=== PATIENT | male | born 1975 | race African-American/Black ===

== ENCOUNTER 2016-08-21 05:59 | Emergency (ER) | payer SELFPAY ==
[~2016-08-21] VITALS: Ht 182.9 cm; Wt 81.6 kg
[2016-08-21 06:11] VITALS: BP 153/88
--- NOTE | 2016-08-21 06:22 | PHYS DOC ---
Past Medical History Past Medical History: No Pertinent History Past Surgical History: No Surgical History Alcohol Use: Rarely Drug Use: Marijuana Adult General Chief Complaint Chief Complaint: SORE THROAT HPI HPI Patient is a 41 year old male who presents with sore throat. The patient reports 3 day history of illness primarily with sore throat, also complains of mild nasal congestion & occasional dry cough. Denies fevers/chills, shortness of breath, vomiting. Previously healthy but has frequent strep pharyngitis. No known exposure to strep but has 4 children. No PCP. Review of Systems Review of Systems Constitutional: Denies fever or chills Eyes: Denies drainage HENT: Reports nasal congestion & sore throat Respiratory: Reports cough, denies shortness of breath Cardiovascular: Denies chest pain GI: Denies abdominal pain, nausea, vomiting Musculoskeletal: Denies back pain or joint pain Integument: Denies rash Neurologic: Denies headache Allergies Allergies Allergies Coded Allergies Type Severity Reaction Last Updated Verified No Known Drug Allergies 07/09/13 No Physical Exam Physical Exam Constitutional: Well developed, well nourished, no acute distress, non-toxic appearance. HENT: Normocephalic, atraumatic, bilateral external ears normal, oropharynx moist, nose normal. tonsils erythematous bilaterally, no exudate or enlargement , uvula enlarged with no airway obstruction. Eyes: conjunctiva normal, no discharge. Neck: supple, no stridor. no cervical lymphadenopathy Cardiovascular: RRR, no murmurs, no edema. Lungs & Thorax: LCTAB, no wheezing, no respiratory distress. Abdomen: nondistended. Skin: Warm, dry, no erythema, no rash. Extremities: No deformity Neurologic: Alert and oriented X 3 Current Patient Data Vital Signs Vital Signs Date Time Temp Pulse Resp B/P Pulse Ox O2 Delivery O2 Flow Rate FiO2 08/21/16 06:11 98.4 62 16 153/88 100 Room Air 98.4 EKG EKG [] Radiology/Procedures Radiology/Procedures [] Course & Med Decision Making Course & Med Decision Making Pertinent Labs and Imaging studies reviewed. (See chart for details) Patient presents with sore throat, concerned that he has strep but appears to have more uvular swelling rather than tonsillar swelling or exudate. No airway compromise, well appearing. Rapid strep negative. Likely viral, gave prescription for prednisone. Recommend rest, hydration, tylenol/ibuprofen for pain/fever. Follow up as needed with Dr. Serrano in the primary care clinic. Come back for difficulty breathing or swallowing, or otherwise worsening condition. Discharged home in stable condition. [] Dragon Disclaimer Dragon Disclaimer This electronic medical record was generated, in whole or in part, using a voice recognition dictation system. Departure Departure Impression: Primary Impression: Uvulitis Disposition: HOME, SELF-CARE Condition: STABLE Referrals: JUAREZ SERRANO MD Patient Instructions: Uvulitis Additional Instructions: You were seen in the emergency department today for sore throat. The strep test was negative. Your uvula is very swollen. Take tylenol or ibuprofen for pain or fever & take prednisone as prescribed to reduce swelling. Drink fluids. Follow up as needed with Dr. Serrano in the primary care clinic. Come back for difficulty breathing or swallowing, or otherwise worsening condition. Scripts Prednisone 50 Mg Tablet1 Tab PO DAILY #5 TAB Prov:EUSEBIA VEGA MD 08/21/16 EUSEBIA VEGA MD Aug 21, 2016 06:22
[2016-08-21] MEDS ORDERED: PRED50TA PO (06:41)
[2016-08-21 08:42] LABS: NEGATIVE OBC STREP NEG; POSITIVE OBC STREP POS
== END 2016-08-21 06:43 | disposition home or self-care (01) ==
LOC: ER 05:59
DX: K12.2 Cellulitis and abscess of mouth (principal); F12.10 Cannabis abuse, uncomplicated
CPT/HCPCS: 87070; 87880; 99283

== ENCOUNTER 2016-11-14 04:47 | Emergency (ER) | payer SELFPAY ==
[~2016-11-14] VITALS: Ht 182.9 cm; Wt 81.6 kg
[~2016-11-14 04:47] MED LIST: PRED50TA PO
[2016-11-14 05:01] VITALS: BP 134/78
[2016-11-14] MEDS ORDERED: PRED50TA PO (05:26)
[2016-11-14] MEDS ORDERED: IBUP200T77 PO (05:26)
--- NOTE | 2016-11-14 05:26 | PHYS DOC ---
Past Medical History Past Medical History: No Pertinent History, Other Additional Past Medical Histor: STREP THROAT Past Surgical History: No Surgical History Alcohol Use: Rarely Drug Use: Marijuana Adult General Chief Complaint Chief Complaint: SORE THROAT HPI HPI 41 yo otherwise healthy M presenting with sore throat. onset 2 days. location throat. duration constant. worse with eating. imroved with rest. ros neg for tongue swelling, stridor, drooling, or cp. all other ros neg. ed course. 41 yo with viral pharyngitis d/ishan with ibu and prednisone. f/u with pcp in 3 days. Allergies Allergies Allergies Coded Allergies Type Severity Reaction Last Updated Verified No Known Drug Allergies 07/09/13 No Physical Exam Physical Exam Constitutional: Well developed, well nourished, no acute distress, non-toxic appearance. [] HENT: Normocephalic, atraumatic, bilateral external ears normal, oropharynx moist, mild erythema of pharynx, without exudates, no evidence of adoption specialist, nl range of motion of the neck., nose normal. [] Eyes: PERRLA, EOMI, conjunctiva normal, no discharge. [] Neck: Normal range of motion, no tenderness, supple, no stridor. [] Cardiovascular:Heart rate regular rhythm, no murmur [] Lungs & Thorax: Bilateral breath sounds clear to auscultation [] Abdomen: Bowel sounds normal, soft, no tenderness, no masses, no pulsatile masses. [] Skin: Warm, dry, no erythema, no rash. [] Back: No tenderness, no CVA tenderness. [] Extremities: No tenderness, no cyanosis, no clubbing, ROM intact, no edema. [] Neurologic: Alert and oriented X 3, normal motor function, normal sensory function, no focal deficits noted. [] Psychologic: Affect normal, judgement normal, mood normal. [] Current Patient Data Vital Signs Vital Signs Date Time Temp Pulse Resp B/P (MAP) Pulse Ox O2 Delivery O2 Flow Rate FiO2 11/14/16 05:01 97.9 73 20 97 Room Air 97.9 Lab Values Laboratory Tests Test 11/14/16 05:09 Group A Streptococcus Rapid Negative (NEGATIVE) Microbiology 11/14/16 Throat Culture - Preliminary, Resulted 11/14/16 - Preliminary, Resulted EKG EKG [] Radiology/Procedures Radiology/Procedures [] Course & Med Decision Making Course & Med Decision Making Pertinent Labs and Imaging studies reviewed. (See chart for details) [] Dragon Disclaimer Dragon Disclaimer This electronic medical record was generated, in whole or in part, using a voice recognition dictation system. Departure Departure Impression: Primary Impression: Tonsillitis Disposition: 01 HOME, SELF-CARE Condition: STABLE Referrals: NO PCP (PCP) BRUCE HOUSER MD Patient Instructions: Sore Throat Additional Instructions: Thank you for allowing us to participate in your care today. Followup with your primary care physician in 3 days if your symptoms do not improve. Call your Primary Doctor tomorrow and inform them of your visit today. If you do not have a primary care provider you can ask for a list of our primary care providers. Return to the emergency department you have any new or concerning findings. This should be evaluated by the primary care physician and any necessary consulting services for continued management within a few days after discharge. Return to emergency room if you have any new or concerning symptoms including but not limited to fever, chills, nausea, vomiting, intractable pain, any new rashes, chest pain, shortness of air, uncontrolled bleeding, difficulty breathing, and/or vision loss. Scripts Ibuprofen (IBUPROFEN) 200 Mg Tablet 200 MG PO PRN Q6HRS Y for INFLAMMATION, #30 TAB Prov: CAIT YOUNG MD 11/14/16 Prednisone (PREDNISONE) 50 Mg Tablet 50 MG PO DAILY, #5 TAB Prov: CAIT YOUNG MD 11/14/16 CAIT YOUNG MD Nov 14, 2016 05:26
[2016-11-14 07:43] LABS: NEGATIVE OBC STREP NEG; POSITIVE OBC STREP POS
== END 2016-11-14 05:41 | disposition home or self-care (01) ==
LOC: ER 04:47
DX: J03.90 Acute tonsillitis, unspecified (principal); F12.10 Cannabis abuse, uncomplicated
CPT/HCPCS: 87070; 87880; 99283

== ENCOUNTER 2018-07-22 09:36 | Emergency (ER) | payer SELFPAY ==
[~2018-07-22] VITALS: Ht 182.9 cm; Wt 95.3 kg
[~2018-07-22 09:36] MED LIST changes: +IBUP200T77 PO
[2018-07-22 09:38] VITALS: BP 157/92
[2018-07-22] MEDS ORDERED: AMOX875T PO (10:13)
[2018-07-22] MEDS ORDERED: PRED50TA PO (10:13)
--- NOTE | 2018-07-22 10:13 | PHYS DOC ---
Past Medical History Past Medical History: No Pertinent History, Other Additional Past Medical Histor: STREP THROAT Past Surgical History: No Surgical History Alcohol Use: Occasionally Drug Use: Marijuana Adult General Chief Complaint Chief Complaint: SORE THROAT HPI HPI Patient is a 43 year old mentally no significant medical history who presents to the ED today complaining of a sore throat and enlarged tonsils that began 2 days ago. Patient denies any fever. He states he can't swallow tablets very painful. Review of Systems Review of Systems Constitutional: Denies fever or chills [] Eyes: Denies change in visual acuity, redness, or eye pain [] HENT: Reports sore throat and enlarged tonsils. Denies nasal congestion Respiratory: Denies cough or shortness of breath [] Cardiovascular: No additional information not addressed in HPI [] GI: Denies abdominal pain, nausea, vomiting, bloody stools or diarrhea [] : Denies dysuria or hematuria [] Musculoskeletal: Denies back pain or joint pain [] Integument: Denies rash or skin lesions [] Neurologic: Denies headache, focal weakness or sensory changes [] All other systems were reviewed and found to be within normal limits, except as documented in this note. Allergies Allergies Allergies Coded Allergies Type Severity Reaction Last Updated Verified No Known Drug Allergies 07/09/13 No Physical Exam Physical Exam Constitutional: Well developed, well nourished, no acute distress, non-toxic appearance. [] HENT: Normocephalic, atraumatic, bilateral external ears normal, oropharynx moist, no oral exudates, nose normal. [] Posterior pharynx with moderate erythema, and no exudate. +2 uvula with mild erythema +2 anterior cervical adenopathy Eyes: PERRLA, EOMI, conjunctiva normal, no discharge. [] Neck: Normal range of motion, no tenderness, supple, no stridor. [] Cardiovascular:Heart rate regular rhythm, no murmur [] Lungs & Thorax: Bilateral breath sounds clear to auscultation [] Abdomen: Bowel sounds normal, soft, no tenderness, no masses, no pulsatile masses. [] Skin: Warm, dry, no erythema, no rash. [] Back: No tenderness, no CVA tenderness. [] Extremities: No tenderness, no cyanosis, no clubbing, ROM intact, no edema. [] Neurologic: Alert and oriented X 3, normal motor function, normal sensory function, no focal deficits noted. [] Psychologic: Affect normal, judgement normal, mood normal. [] Current Patient Data Vital Signs Vital Signs Date Time Temp Pulse Resp B/P (MAP) Pulse Ox O2 Delivery O2 Flow Rate FiO2 07/22/18 09:38 97.9 62 16 157/92 (113) 98 Room Air 97.9 EKG EKG [] Radiology/Procedures Radiology/Procedures [] Course & Med Decision Making Course & Med Decision Making Pertinent Labs and Imaging studies reviewed. (See chart for details) This is a 43-year-old male patient being evaluated today for acute tonsillitis. Patient was discharged on amoxicillin for 10 days and prednisone for 5 days. Saltwater gargles recommended. Tylenol every 4 hours and Motrin every 6 recommended. Instructed to return to the ED at any point symptoms worsen. Dragon Disclaimer Dragon Disclaimer This electronic medical record was generated, in whole or in part, using a voice recognition dictation system. Departure Departure Impression: Primary Impression: Acute tonsillitis Disposition: 01 HOME, SELF-CARE Condition: STABLE Referrals: UNKNOWN PCP NAME (PCP) Follow up with your docto in 1-2 weeks Patient Instructions: Tonsillitis Additional Instructions: You have acute tonsillitis. We put you on antibiotics, ensure you complete them. Take Tylenol/Motrin as needed for pain or fever. Use saltwater gargles. Return to the ED at any point symptoms worsen especially if you're unable to tolerate your own secretions Scripts Prednisone (PREDNISONE) 50 Mg Tablet 1 TAB PO DAILY, #5 TAB Prov: ROSALIA CORLEY APRN 07/22/18 Amoxicillin (AMOXICILLIN) 875 Mg Tablet 1 TAB PO BID, #20 TAB Prov: ROSALIA CORLEY APRN 07/22/18 Problem Qualifiers Primary Impression: Acute tonsillitis Pharyngitis/tonsillitis etiology: unspecified etiology Qualified Codes: J03.90 - Acute tonsillitis, unspecified ROSALIA CORLEY APRN Jul 22, 2018 10:13
== END 2018-07-22 10:24 | disposition home or self-care (01) ==
LOC: ER 09:36
DX: J03.90 Acute tonsillitis, unspecified (principal)
CPT/HCPCS: 99283